=== PATIENT | female | born 1990 | race Caucasian/White ===

== ENCOUNTER 2017-03-08 14:49 | Emergency (ER) | payer OTHER ==
[~2017-03-08] VITALS: Ht 162.6 cm; Wt 65.8 kg
[~2017-03-08 14:49] MED LIST: ALBUTEROL2.5 MG/0.1 INH; AMOXICILLIN 50500 M1 PO; CITRATE OF MAG296 ML PO; NORCO 5-325 TA1 EACH PO; PEPCID40 MG PO; PRENATAL; PRENATAL TABLE1 EAC3 PO; SPRINTEC1 EACH PO; ZOFRAN ODT4 MG PO; ZOFRAN4 MG PO
== END 2017-03-08 17:34 | disposition home or self-care (01) ==
LOC: ER 14:49
DX: S06.0X0A Concussion without loss of consciousness, initial encounter (principal); J45.909 Unspecified asthma, uncomplicated; W22.03XA Walked into furniture, initial encounter; Y93.89 Activity, other specified; Y92.89 Other specified places as the place of occurrence of the external cause; Y99.0 Civilian activity done for income or pay

== ENCOUNTER 2017-12-27 16:01 | Emergency (ER) | payer OTHER ==
[~2017-12-27] VITALS: Ht 162.6 cm; Wt 68.0 kg
[2017-12-27] MEDS ORDERED: FLEXERIL PO (16:08)
[2017-12-27] MEDS ORDERED: NAPROSYN500 MG PO (16:08)
[2017-12-27] MEDS ORDERED: ACETAMINOPHEN-1 EAC1 PO (17:02)
[2017-12-27] MEDS ORDERED: BUTALB-APAP-CA1 EACH PO (17:02)
[2017-12-27] MEDS ORDERED: ANTIVERT25 MG PO (17:02)
== END 2017-12-27 18:07 | disposition home or self-care (01) ==
LOC: ER 16:01
DX: S16.1XXA Strain of muscle, fascia and tendon at neck level, initial encounter (principal); S09.90XA Unspecified injury of head, initial encounter; G44.209 Tension-type headache, unspecified, not intractable; F07.81 Postconcussional syndrome; J45.909 Unspecified asthma, uncomplicated; R42 Dizziness and giddiness; V89.2XXA Person injured in unspecified motor-vehicle accident, traffic, initial encounter; Y92.89 Other specified places as the place of occurrence of the external cause; Y93.89 Activity, other specified; Y99.8 Other external cause status

== ENCOUNTER 2018-02-03 21:43 | Emergency (ER) | payer OTHER ==
[~2018-02-03] VITALS: Ht 162.6 cm; Wt 68.0 kg
[~2018-02-03 21:43] MED LIST changes: +ACETAMINOPHEN-1 EAC1 PO; +ANTIVERT25 MG PO; +BUTALB-APAP-CA1 EACH PO; +FLEXERIL PO; +NAPROSYN500 MG PO
[2018-02-03 21:49] VITALS: BP 131/66
[2018-02-03] MEDS ORDERED: IBUPROFEN 800800 M1 PO (22:21)
== END 2018-02-03 22:50 | disposition home or self-care (01) ==
LOC: ER 21:43
DX: S93.492A Sprain of other ligament of left ankle, initial encounter (principal); J45.909 Unspecified asthma, uncomplicated; W19.XXXA Unspecified fall, initial encounter; Y93.89 Activity, other specified; Y92.89 Other specified places as the place of occurrence of the external cause; Y99.8 Other external cause status

== ENCOUNTER 2019-01-28 20:03 | Emergency (ER) | payer OTHER ==
[~2019-01-28] VITALS: Ht 162.6 cm; Wt 63.5 kg
[~2019-01-28 20:03] MED LIST changes: +IBUPROFEN 800800 M1 PO
[2019-01-28 20:04] VITALS: BP 117/72
[2019-01-28] MEDS ORDERED: PENICILLIN V P500 MG PO ×2 (20:08→20:14)
== END 2019-01-28 20:41 | disposition home or self-care (01) ==
LOC: ER 20:03
DX: J02.9 Acute pharyngitis, unspecified (principal); J45.909 Unspecified asthma, uncomplicated

== ENCOUNTER 2019-03-01 16:55 | Emergency (ER) | payer OTHER ==
[~2019-03-01] VITALS: Ht 162.6 cm; Wt 64.9 kg
[~2019-03-01 16:55] MED LIST changes: +PENICILLIN V P500 MG PO
[2019-03-01 16:58] VITALS: BP 111/61
[2019-03-01] MEDS ORDERED: TESSALON PERLE100 MG PO (18:09)
[2019-03-01] MEDS ORDERED: TAMIFLU75 MG PO (18:09)
== END 2019-03-01 18:40 | disposition home or self-care (01) ==
LOC: ER 16:55
DX: J11.1 Influenza due to unidentified influenza virus with other respiratory manifestations (principal); J45.909 Unspecified asthma, uncomplicated

== ENCOUNTER 2019-07-20 12:36 | Emergency (ER) | payer OTHER ==
[~2019-07-20] VITALS: Ht 162.6 cm; Wt 70.3 kg
[~2019-07-20 12:36] MED LIST changes: +TAMIFLU75 MG PO; +TESSALON PERLE100 MG PO
[2019-07-20] MEDS ORDERED: PROAIR HFA8.5 GM INH ×2 (12:47→14:07)
[2019-07-20 14:45] VITALS: BP 121/73
--- NOTE | 2019-07-21 08:15 | EKG ---
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
== END 2019-07-20 14:45 | disposition home or self-care (01) ==
LOC: ER 12:36
DX: R06.02 Shortness of breath (principal); R06.00 Dyspnea, unspecified; M79.10 Myalgia, unspecified site; J45.909 Unspecified asthma, uncomplicated; Z20.828 Contact with and (suspected) exposure to other viral communicable diseases

== ENCOUNTER 2019-08-25 16:05 | Emergency (ER) | payer OTHER ==
[~2019-08-25] VITALS: Ht 162.6 cm; Wt 68.0 kg
[~2019-08-25 16:05] MED LIST changes: +PROAIR HFA8.5 GM INH
[2019-08-25 17:35] VITALS: BP 119/82
== END 2019-08-25 17:40 | disposition home or self-care (01) ==
LOC: ER 16:05
DX: B34.9 Viral infection, unspecified (principal); J45.909 Unspecified asthma, uncomplicated; Z79.899 Other long term (current) drug therapy; Z20.828 Contact with and (suspected) exposure to other viral communicable diseases

== ENCOUNTER → 2019-09-22 | Emergency (ER) | payer OTHER ==
[~2019-09-22] VITALS: Ht 172.7 cm; Wt 79.8 kg
[2019-09-22 16:38] VITALS: BP 106/82
== END ==
LOC: ER 14:43
DX: R09.81 Nasal congestion (principal); Z20.828 Contact with and (suspected) exposure to other viral communicable diseases; R09.89 Other specified symptoms and signs involving the circulatory and respiratory systems; J45.909 Unspecified asthma, uncomplicated; Z79.899 Other long term (current) drug therapy

== ENCOUNTER 2019-10-28 19:21 | Emergency (ER) | payer OTHER ==
[~2019-10-28] VITALS: Ht 162.6 cm; Wt 68.0 kg
[2019-10-28 20:05] LABS: URINE BILIRUBIN NEGATIVE (Negative); URINE BLOOD 1+ (Negative); URINE CLARITY CLEAR; URINE COLOR YELLOW; URINE GLUCOSE-RANDOM* NEGATIVE (Negative); URINE KETONES NEGATIVE (Negative); URINE NITRITE-REFLEX NEGATIVE (Negative); URINE PROTEIN (DIPSTICK) NEGATIVE (Negative); URINE SPECIFIC GRAVITY 1.025 (1.005-1.035); URINE UROBILINOGEN 0.2 E.U./dl (0.2-1.0)
[2019-10-28 20:07] LABS: URINE LEUKOCYTES-REFLEX 1+ (Negative)
[2019-10-28 20:13] LABS: SQUAMOUS >10 Many /LPF (0-3)
[2019-10-28 20:14] LABS: BACTERIA-REFLEX >30 Many /HPF (None Seen); CASTS None Seen /LPF (None Seen); URINE RBC 3-10 Few /HPF (0-2); URINE WBC-REFLEX 6-15 Few /HPF (0-5)
[2019-10-28 20:15] LABS: CRYSTALS None Seen /LPF (None Seen)
[2019-10-28 20:18] LABS: ABSOLUTE NEUTROPHILS 5.5 thou/uL (1.4-8.2); BASOPHILS 1.1 % (0.0-2.0); EOSINOPHILS 2.4 % (0.0-3.0); HEMATOCRIT 40.8 % (37.0-47.0); HEMOGLOBIN 13.8 gm/dL (12.0-15.0); LYMPHOCYTES 30.7 % (24.0-44.0); MCH 29.4 pg (26.0-34.0); MCHC 33.8 g/dL (28.0-37.0); MONOCYTES 7.5 % (1.0-8.0); PLATELET COUNT 259 thou/uL (150-400); POLYS 58.3 % (36.0-66.0); RBC 4.69 mil/uL (4.20-5.00); RDW 12.5 % (10.5-14.5); WBC 9.5 thou/uL (4.0-11.0)
[2019-10-28 20:26] LABS: CREATININE 0.7 mg/dL (0.6-1.0); POTASSIUM 3.9 mmol/L (3.5-5.1)
[2019-10-28 20:32] LABS: ALBUMIN 4.2 g/dL (3.4-5.0); TOTAL BILIRUBIN 0.2 mg/dL (0.2-1.0); TOTAL PROTEIN 8.1 g/dL (6.4-8.2)
[2019-10-28] MEDS ORDERED: KEFLEX500 M1 PO (21:02)
[2019-10-28 21:09] VITALS: BP 121/81
== END 2019-10-28 21:16 | disposition home or self-care (01) ==
LOC: ER 19:21
PROVIDERS: Nurse Practitioner
DX: N39.0 Urinary tract infection, site not specified (principal); R42 Dizziness and giddiness; J45.909 Unspecified asthma, uncomplicated; Z79.899 Other long term (current) drug therapy

== ENCOUNTER 2019-11-03 16:54 | Emergency (ER) | payer OTHER ==
[~2019-11-03] VITALS: Ht 162.6 cm; Wt 68.0 kg
[~2019-11-03 16:54] MED LIST changes: +KEFLEX500 M1 PO
[2019-11-03 17:11] LABS: URINE BILIRUBIN NEGATIVE (Negative); URINE BLOOD 1+ (Negative); URINE CLARITY CLEAR; URINE COLOR YELLOW; URINE GLUCOSE-RANDOM* NEGATIVE (Negative); URINE KETONES NEGATIVE (Negative); URINE LEUKOCYTES-REFLEX TRACE (Negative); URINE NITRITE-REFLEX NEGATIVE (Negative); URINE PROTEIN (DIPSTICK) NEGATIVE (Negative); URINE SPECIFIC GRAVITY 1.015 (1.005-1.035); URINE UROBILINOGEN 0.2 E.U./dl (0.2-1.0)
[2019-11-03 17:21] LABS: BACTERIA-REFLEX 1-9 Few /HPF (None Seen); CASTS None Seen /LPF (None Seen); CRYSTALS None Seen /LPF (None Seen); SQUAMOUS 0-3 Few /LPF (0-3); URINE RBC 0-2 Rare /HPF (0-2); URINE WBC-REFLEX 0-5 Rare /HPF (0-5)
[2019-11-03 18:05] LABS: ABSOLUTE NEUTROPHILS 5.3 thou/uL (1.4-8.2); BASOPHILS 0.8 % (0.0-2.0); EOSINOPHILS 2.3 % (0.0-3.0); HEMATOCRIT 40.1 % (37.0-47.0); HEMOGLOBIN 13.3 gm/dL (12.0-15.0); LYMPHOCYTES 27.9 % (24.0-44.0); MCH 29.2 pg (26.0-34.0); MCHC 33.2 g/dL (28.0-37.0); MONOCYTES 6.8 % (1.0-8.0); PLATELET COUNT 246 thou/uL (150-400); POLYS 62.2 % (36.0-66.0); RBC 4.56 mil/uL (4.20-5.00); RDW 12.8 % (10.5-14.5); WBC 8.5 thou/uL (4.0-11.0)
[2019-11-03 18:12] LABS: CALCIUM 8.6 mg/dL (8.5-10.1); CREATININE 0.5 mg/dL (0.6-1.0); POTASSIUM 4.4 mmol/L (3.5-5.1)
[2019-11-03 18:18] LABS: ALBUMIN 4.1 g/dL (3.4-5.0); TOTAL BILIRUBIN 0.3 mg/dL (0.2-1.0); TOTAL PROTEIN 7.4 g/dL (6.4-8.2)
[2019-11-03 19:41] VITALS: BP 128/52
--- NOTE | 2019-11-04 08:22 | EKG ---
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
== END 2019-11-03 19:41 | disposition home or self-care (01) ==
LOC: ER 16:54
PROVIDERS: Emergency Medicine; Physician Assistant
DX: R55 Syncope and collapse (principal); R00.2 Palpitations; R11.2 Nausea with vomiting, unspecified; R10.13 Epigastric pain; R09.89 Other specified symptoms and signs involving the circulatory and respiratory systems; J45.909 Unspecified asthma, uncomplicated; Z79.899 Other long term (current) drug therapy; Z79.2 Long term (current) use of antibiotics

== ENCOUNTER 2021-01-13 15:31 | Emergency (ER) | payer BC, OTHER ==
[~2021-01-13] VITALS: Ht 162.6 cm; Wt 72.6 kg
[2021-01-13 16:10] LABS: URINE BILIRUBIN NEGATIVE (Negative); URINE BLOOD 1+ (Negative); URINE CLARITY SL CLOUDY; URINE COLOR YELLOW; URINE GLUCOSE-RANDOM* NEGATIVE (Negative); URINE KETONES TRACE (Negative); URINE LEUKOCYTES-REFLEX TRACE (Negative); URINE NITRITE-REFLEX NEGATIVE (Negative); URINE PROTEIN (DIPSTICK) NEGATIVE (Negative); URINE SPECIFIC GRAVITY >= 1.030 (1.005-1.035); URINE UROBILINOGEN 0.2 E.U./dl (0.2-1.0)
[2021-01-13 16:25] LABS: CASTS None Seen /LPF (None Seen); CRYSTALS None Seen /LPF (None Seen); SQUAMOUS >10 Many /LPF (0-3); URINE RBC 1-2 Rare /HPF (NONE SEEN); URINE WBC-REFLEX 0-5 Rare /HPF (0-5)
[2021-01-13] MEDS ORDERED: AUGMENTIN 875-1 EACH PO (16:40)
[2021-01-13 16:45] VITALS: BP 145/83
== END 2021-01-13 16:45 | disposition home or self-care (01) ==
LOC: ER 15:31
PROVIDERS: Nurse Practitioner
DX: N39.0 Urinary tract infection, site not specified (principal); R42 Dizziness and giddiness; J45.909 Unspecified asthma, uncomplicated

== ENCOUNTER 2021-02-12 11:45 | Emergency (ER) | payer BC, OTHER ==
[~2021-02-12] VITALS: Ht 162.6 cm; Wt 79.4 kg
[~2021-02-12 11:45] MED LIST changes: +AUGMENTIN 875-1 EACH PO
[2021-02-12] MEDS ORDERED: ZOFRAN ODT4 MG PO (14:12)
[2021-02-12 14:27] VITALS: BP 134/81
== END 2021-02-12 14:28 | disposition home or self-care (01) ==
LOC: ER 11:45
DX: A08.4 Viral intestinal infection, unspecified (principal); R19.7 Diarrhea, unspecified; J45.909 Unspecified asthma, uncomplicated; Z79.51 Long term (current) use of inhaled steroids